=== PATIENT | female | born 1955 | race Caucasian/White ===

== ENCOUNTER → 2017-12-25 | Outpatient (CLI) | payer OTHER ==
--- NOTE | 2017-12-25 16:28 | US ---
EXAMINATION TYPE: US kidneys/renal and bladder DATE OF EXAM: 12/25/2017 COMPARISON: CT 2014 CLINICAL HISTORY: 62-year-old female R31.9 Hematuria x 6 weeks, intermittent back pain Technique: Multiple sonographic images of the kidneys and bladder are obtained. FINDINGS: Right Kidney: 10.6 x 4.4 x 4.3 cm without hydronephrosis. Left Kidney: 11.2 x 5.0 x 4.9 cm without hydronephrosis. No gross abnormality of the partially urine distended bladder. Bilateral Jets seen: no IMPRESSION: No hydronephrosis.
== END | disposition home or self-care (01) ==
LOC: RADUSWWP 15:31
PROVIDERS: ATTEND Family Medicine
DX: R31.9 Hematuria, unspecified (principal)
CPT/HCPCS: 76770

== ENCOUNTER → 2018-01-27 | Outpatient (CLI) | payer OTHER ==
[2018-01-27 16:36] VITALS: BP 144/73; PULSE 92; TEMP 98; BMI 28.2
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
--- NOTE | 2018-01-29 13:11 | MM ---
Reason for exam: screening (asymptomatic). Last mammogram was performed 2 years and 1 month ago. History: Patient is postmenopausal and has history of other cancer at age 58. Benign excisional biopsy of the left breast, 2005. Took hormonal contraceptives for 5 years. Physical Findings: A clinical breast exam by your physician is recommended on an annual basis and results should be correlated with mammographic findings. MG 3D Screening Mammo W/Cad Bilateral CC and MLO view(s) were taken. Prior study comparison: January 03, 2016, bilateral MG 3d screening mammo w/cad. May 03, 2014, bilateral MG screening mammo w CAD. There are scattered fibroglandular densities. No significant changes when compared with prior studies. ASSESSMENT: Negative, BI-RAD 1 RECOMMENDATION: Routine screening mammogram of both breasts in 1 year.
--- NOTE | 2018-02-03 17:17 | P.PN ---
Progress Note - Text Progress Note Date: 02/03/18 The mammogram and Pap smear from 01/27/18 were both negative. These results were left on the patient's voicemail.
== END | disposition home or self-care (01) ==
LOC: WWCWWP 15:54
PROVIDERS: ATTEND Obstetrics & Gynecology
DX: Z12.31 Encounter for screening mammogram for malignant neoplasm of breast (principal)
CPT/HCPCS: 77063; 77067

== ENCOUNTER → 2018-03-03 | Outpatient (CLI) | payer OTHER ==
--- NOTE | 2018-03-03 11:24 | US ---
EXAMINATION TYPE: US pelvic complete DATE OF EXAM: 03/03/2018 COMPARISON: Pelvic ultrasound January 16, 2016 CLINICAL HISTORY: Z80.41 family history of ovarian cancer, N83.291. Pt states family history of Ovari an CA (Father's side), otherwise no other complaints at this time TECHNIQUE: Transabdominal (TA). Previous Transvaginal exams very limited, TV not performed Date of LMP: 12 yrs ago EXAM MEASUREMENTS: Uterus: 9.0 x 3.8 x 4.5 cm Endometrial Stripe: 0.4 cm Right Ovary: 1.8 x 1.4 x 1.3 cm Left Ovary: 1.7 x 1.7 x 1.3 cm 1. Uterus: Anteverted Heterogeneous 2. Endometrium: wnl 3. Right Ovary: wnl 4. Left Ovary: wnl 5. Bilateral Adnexa: wnl 6. Posterior cul-de-sac: wnl IMPRESSION: No suspicious ovarian or adnexal masses identified.
== END | disposition home or self-care (01) ==
LOC: RADUSWWP 10:25
PROVIDERS: ATTEND Obstetrics & Gynecology
DX: N83.201 Unspecified ovarian cyst, right side (principal); Z80.41 Family history of malignant neoplasm of ovary
CPT/HCPCS: 76856

== ENCOUNTER → 2019-01-13 | Outpatient (CLI) | payer OTHER ==
--- NOTE | 2019-01-13 20:53 | MR ---
EXAMINATION TYPE: MR lumbar spine wo con DATE OF EXAM: 01/13/2019 COMPARISON: NONE HISTORY: Mid/low back pain x 2 years, no hx trauma/surgery TECHNIQUE: T1 and T2 axial and sagittal images of the lumbar spine are submitted. FINDINGS: There is no abnormal signal seen within the visualized spinal cord or paraspinal soft tissu es. At L1-2 there is no disc herniation or canal stenosis. No foraminal encroachment. At L2-3 there is mild circumferential disc bulging but no evidence of disc herniation or canal stenos is. No foraminal encroachment At L3-4 there is mild circumferential disc bulging. No focal herniation or canal stenosis. At L4-5 there is annular tear. Central disc protrusion with mild effacement of thecal sac. Hypertroph ic change of the facets and ligamentum flavum noted. Mild bilateral foraminal encroachment. At L5-S1 there is Severe degenerative disc disease with discogenic marrow changes. Advanced facet art hropathy. Mild bilateral foraminal encroachment. Mild broad-based disc bulging but no canal stenosis or focal herniation There is multilevel mild degenerative disc disease with severe changes L5-S1. Multilevel facet arthro damaris noted. Simple appearing hepatic cysts are noted. Aorta of normal caliber. IMPRESSION: 1. Multilevel degenerative disc disease and facet arthropathy. Annular tear and disc protrusion or sm all herniation L4-L5 with facet arthropathy and ligamentum flavum result in mild to moderate effaceme nt of thecal sac and mild bilateral foraminal encroachment.
== END | disposition home or self-care (01) ==
LOC: RADMRIMAIN 16:31
PROVIDERS: ATTEND Family Medicine
DX: M51.16 Intervertebral disc disorders with radiculopathy, lumbar region (principal); M46.86 Other specified inflammatory spondylopathies, lumbar region
CPT/HCPCS: 72148

== ENCOUNTER → 2022-09-19 | Outpatient (CLI) | payer MEDICARE, BC ==
--- NOTE | 2022-09-19 10:04 | MR ---
EXAMINATION TYPE: MR knee RT wo con DATE OF EXAM: 09/19/2022 COMPARISON: None HISTORY: Rt knee pain TECHNIQUE: Multiplanar, multisequence imaging of the right knee is performed without IV contrast. FINDINGS: MEDIAL MENISCUS: There is grade 3 abnormal signal in the posterior horn of the medial meniscus compat ible with tear LATERAL MENISCUS: There is intrasubstance signal seen in the body of the meniscus suspicious for tear CRUCIATE LIGAMENTS: The anterior and posterior cruciate ligaments are intact and unremarkable. COLLATERAL LIGAMENTS: The medial collateral ligament and lateral collateral ligament complex are inta ct and unremarkable. EXTENSOR MECHANISM: Visualized quadriceps and patellar tendons are intact. EFFUSION: No significant suprapatellar joint effusion. POPLITEAL CYST: No popliteal/oro cyst. TRICOMPARTMENT SPACES: There is narrowing and tricompartment joint space without evidence of erosive changes. Marked thinning of the patellar cartilage compatible with chondromalacia BONE MARROW SIGNAL: Small focal area measuring 1 cm abnormal signal posterior medial femoral condyle. More diffuse. Abnormal signal involving the lateral tibial plateau is likely on the basis of marrow edema. OTHER: There is a small amount of fluid in the suprapatellar bursa. IMPRESSION: 1. Osteoarthritis no erosive changes. There is marked thinning of the patellar cartilage chondromalac ia and there is a small suprapatellar bursal fluid collection 2. Posterior horn medial meniscal tear 3. Posterior horn and body lateral meniscal tear. 4. There is a 1 cm lobulated abnormal signal in the posterior medial femoral condyle could represent an area of osteochondritis correlate clinically. 5. Ill-defined marrow edema or contusion involving the medial tibial plateau likely reactive secondar y to arthritic changes no definite fracture line correlate clinically.
== END | disposition home or self-care (01) ==
LOC: RADMRIMAIN 08:32
PROVIDERS: ATTEND Family Medicine
DX: M17.11 Unilateral primary osteoarthritis, right knee (principal); M23.321 Other meniscus derangements, posterior horn of medial meniscus, right knee; M23.351 Other meniscus derangements, posterior horn of lateral meniscus, right knee

== ENCOUNTER → 2023-06-10 | Outpatient (CLI) | payer MEDICARE, BC ==
--- NOTE | 2023-06-11 00:31 | MR ---
EXAMINATION TYPE: MR thoracic spine wo con DATE OF EXAM: 06/10/2023 5:05 PM COMPARISON: No priors. INDICATION: Patient age:Female; 67 years old; Reason for study: R10.9, M54.14; PHH. Mid back pain, radiculopathy TECHNIQUE: Multi planar, multi sequence imaging was performed utilizing: T1-weighted, short-tau inver kaur recovery and T2-weighted of the thoracic spine. The patient was not given Gadolinium. IV Contrast: None FINDINGS: Alignment: Alignment is within normal limits. Vertebral bodies have preserved heights. Spinal cord: Spinal cord is within normal limits for signal. Discs: Intervertebral disc signal is maintained. No evidence of significant spinal canal or neural fo raminal stenosis. There is no evidence of extradural defects or central spinal canal narrowing at any thoracic vertebral body level Osseous structures: No abnormal bony edema on inversion recovery sequences. Multilevel osteophyte for mation and facet joint arthropathy. Scattered disc space narrowing. Scattered Schmorl's nodes are pre sent. Few scattered hepatic probable cysts which are high T2 signal. IMPRESSION: No evidence for significant spinal canal or neural foraminal stenosis. No abnormal edema on inversion recovery sequences.
== END | disposition home or self-care (01) ==
LOC: RADMRIMAIN 15:46
PROVIDERS: ATTEND Family Medicine
DX: R10.9 Unspecified abdominal pain (principal); M54.14 Radiculopathy, thoracic region
CPT/HCPCS: 72146

== ENCOUNTER → 2023-09-18 | Outpatient (CLI) | payer MEDICARE, BC ==
--- NOTE | 2023-09-21 16:42 | MM ---
Reason for Exam: Screening (asymptomatic). Last mammogram was performed 5 year(s) and 8 month(s) ago. Patient History: Menarche at age 12. First Full-Term at age 19. Postmenopausal. Other cancer, age 58. Patient used Hormonal Contraceptives for 5 years. 2006, Benign Excisional Biopsy on the left side. Risk Values: Cordelia 5 year model risk: 1.8%. NCI Lifetime model risk: 5.9%. Prior Study Comparison: 05/03/2014 Bilateral Screening Mammogram, [facility]. 01/03/2016 Bilateral Screening Mammogram, [facility]. 01/27/2018 Bilateral Screening Mammogram, [facility]. Tissue Density: There are scattered fibroglandular densities. Findings: Analyzed By CAD. There is no suspicious group of microcalcifications or new suspicious mass in either breast. Overall Assessment: Negative, BI-RAD 1 Management: Screening Mammogram of both breasts in 1 year. . Patient should continue monthly self-breast exams. A clinical breast exam by your physician is recommended on an annual basis. This exam should not preclude additional follow-up of suspicious palpable abnormalities. Note on Cordelia scores and lifetime risk: 1. A Cordelia score greater than 3% is considered moderate risk. If this is the case, consider specialist referral to assess eligibility for a risk reducing agent. 2. If overall lifetime risk for the development of breast cancer is 20% or higher, the patient may qualify for future screening with alternating mammogram and breast MRI. Electronically signed and approved by: Yvonne Alvarez M.D. Radiologist
== END | disposition home or self-care (01) ==
LOC: RADMAMWWP 16:57
PROVIDERS: ATTEND Family Medicine
DX: Z12.31 Encounter for screening mammogram for malignant neoplasm of breast (principal); Z78.0 Asymptomatic menopausal state
CPT/HCPCS: 77063; 77067